=== PATIENT | female | born 1960 | race African-American/Black ===

== ENCOUNTER 2017-03-12 10:27 | Inpatient (IN) | payer OTHER ==
[~2017-03-12] VITALS: Ht 160 cm; Wt 71.7 kg
[2017-03-12] MEDS ORDERED: AZEL23SP NS (10:35)
[2017-03-12] MEDS ORDERED: OMEP20TA68 PO (10:35)
--- NOTE | 2017-03-12 10:40 | NUR ---
Pt ambulated to restroom but stated she is unable to provide a urine specimen at this time.
[2017-03-12] MEDS ORDERED: PANTOPRAZOLE SODIUM IV 40 MG in IV DEXTROSE 5% 100 ML IV ONE (11:15)
[2017-03-12] MEDS ORDERED: IV NS 1000 ML 1,000 ML IV ONE ×2 (11:15→14:16)
[2017-03-12] MEDS ORDERED: MORPHINE SULFATE 2 MG/1 ML DISP.SYRIN IV ONE (11:15)
[2017-03-12] MEDS ORDERED: ONDANSETRON IV *ER 4 MG/2 ML VIAL IV ONE (11:15)
[2017-03-12] MEDS ORDERED: MORPHINE SULFATE 2 MG/1 ML DISP.SYRIN ONE (11:24)
[2017-03-12] MEDS ORDERED: PANTOPRAZOLE SODIUM 40 MG VIAL ONE (11:25)
[2017-03-12] MEDS ORDERED: ONDANSETRON 4 MG/2 ML VIAL ONE (11:25)
[2017-03-12 11:41] LABS: BASOPHILS % (AUTO) 0.3 % (0.0-2.0); HEMATOCRIT 40.8 % (31.2-41.9); HEMOGLOBIN 13.2 g/dL (10.9-14.3); LYMPHOCYTES # (AUTO) 0.7 K/uL (20.0-40.0); MEAN CORPUSCULAR HGB CONC 32 g/dL (32.3-35.6); MEAN CORPUSCULAR VOLUME 74.2 fL (75.5-95.3); MONOCYTES # (AUTO) 0.2 K/uL (2.0-10.0); MONOCYTES % (AUTO) 1.6 % (0.0-11.0); NEUTROPHILS # (AUTO) 10.1 K/uL (1.8-8.9); NEUTROPHILS % (AUTO) 92.1 % (38.5-71.5); PLATELET COUNT (AUTO) 205 K/uL (179-408); RED BLOOD CELL COUNT(AUTO) 5.51 MIL/uL (3.63-4.92)
[2017-03-12] MEDS ORDERED: MORPHINE SULFATE 4 MG/1 ML DISP.SYRIN IV ONE (11:45)
[2017-03-12 11:49] LABS: CALCIUM 9.2 mg/dL (8.5-10.1); CREATININE 0.8 mg/dL (0.6-1.3); POTASSIUM 3.5 mmol/L (3.5-5.1)
[2017-03-12] MEDS ORDERED: MORPHINE SULFATE 4 MG/1 ML DISP.SYRIN ONE (11:49)
[2017-03-12 11:55] LABS: ALBUMIN 4.1 g/dL (3.4-5.0); BILIRUBIN,TOTAL 0.7 mg/dL (0.2-1.0); TOTAL PROTEIN, SERUM 8.8 g/dL (6.4-8.2)
[2017-03-12] MEDS ORDERED: IV NORMAL SALINE 250 ML IV ONE (12:50)
[2017-03-12] MEDS ORDERED: IOHEXOL 300MG/ML 100 ML INFUS..BTL ONE (12:50)
--- NOTE | 2017-03-12 13:30 | NUR ---
Pt resting in [facility], states pain is improved, NAD noted at this time.
[2017-03-12 13:57] LABS: BAND % (MANUAL) 3 % (0-10); LYMPHOCYTES % (MANUAL) 14 % (20-40); MONOCYTES % (MANUAL) 5 % (2-10); NEUTROPHILS % (MANUAL) 78 % (42-75); PLATELET ESTIMATE ADEQUATE
[2017-03-12 13:58] LABS: HYPOCHROMASIA 1+
--- NOTE | 2017-03-12 14:00 | NUR ---
Dr Crowley at bedside for re-eval.
[2017-03-12 14:14] LABS: *BILIRUBIN,URIN NEGATIVE (NEGATIVE); *BLOOD, URINE Trace-intact (NEGATIVE); *CLARITY,URINE CLEAR (CLEAR); *COLOR,URINE YELLOW (YELLOW); *KETONES,URINE 3+ (NEGATIVE); *PROTEIN,URINE 1+ (NEGATIVE); *UROBILINOGEN,URINE 0.2 E.U./dl (NORMAL); LEUKOCYTE ESTERASE ,URINE NEGATIVE (NEGATIVE); NITRITE, URINE NEGATIVE (NEGATIVE); PH,URINE 7.5 (5.0-8.0); UGLUCOSE NEGATIVE (NEGATIVE)
[2017-03-12] MEDS ORDERED: AMPICILLIN IV 3 G in IV NORMAL SALINE 100 ML IV ONE (14:15)
--- NOTE | 2017-03-12 14:16 | NUR ---
Pt states she is pain free at this time, Dr Crowley spoke with Dr Roy (surg) via telephone.
[2017-03-12 14:21] LABS: BACTERIA,URINE FEW /HPF (NONE SEEN); RBC,URINE 0-3 /HPF (0-3); SQUAMOUS EPITHELIAL CELL,UR FEW /HPF (NONE SEEN)
[2017-03-12] MEDS ORDERED: PIPERACILLIN/TAZOBACTAM/D5W 50 ML IV ONE (14:33)
[2017-03-12] MEDS ORDERED: IV D5 1/2 NS 1000 ML 1,000 ML IV PRN (14:43)
[2017-03-12] MEDS ORDERED: TEMAZEPAM 7.5 MG CAPSULE PO PRN ×2 (14:45→15:15)
[2017-03-12] MEDS ORDERED: ACETAMINOPHEN 325 MG TABLET PO PRN ×2 (14:45→15:15)
[2017-03-12] MEDS ORDERED: HYDROCODONE/APAP 5-325MG TABLET PO PRN ×2 (14:45→15:15)
[2017-03-12] MEDS ORDERED: MAGNESIUM HYDROXIDE 30 ML LIQUID UDC PO PRN ×2 (14:45→15:15)
[2017-03-12] MEDS ORDERED: ONDANSETRON 4 MG/2 ML VIAL IV PRN (14:45)
[2017-03-12] MEDS ORDERED: Z GUARD REMEDY PASTE 57 GM TUBE TOP PRN ×2 (14:45→15:15)
[2017-03-12] MEDS ORDERED: MORPHINE SULFATE 2 MG/1 ML DISP.SYRIN IV PRN (14:45)
--- NOTE | 2017-03-12 15:06 | NUR ---
Pt trans to m/s , NAD noted at this time.
[2017-03-12 15:53] VITALS: BP 106/64
[2017-03-12 16:00] VITALS: BP 145/86
[2017-03-12] MEDS ORDERED: PIPERACILLIN/TAZOBACTAM/D5W 50 ML IV SCH (18:00)
[2017-03-12] MEDS: PIPERACILLIN/TAZOBACTAM/D5W 50 ML IV SCH ×2 (18:17→23:48)
[2017-03-12] MEDS: MORPHINE SULFATE 2 MG/1 ML DISP.SYRIN IV PRN (18:45)
--- NOTE | 2017-03-12 19:10 | NUR ---
Received report from ODELL Coyle
--- NOTE | 2017-03-12 19:35 | NUR ---
PT IS LAYING IN BED COMFORTABLY. NO S/S OF RESPIRATORY DISTRESS NOTED. NO PAIN NOTED. ALL SAFETY NEEDS ARE MET.
--- NOTE | 2017-03-12 19:48 | NUR ---
Awake, lying on bed with couple of friends at bedside. Denies any pain/discomforts at this time. IVF infusing well at this time on LAC. Continue care as planned.
[2017-03-12] MEDS: IV D5 1/2 NS 1000 ML 1,000 ML IV PRN (19:57)
[2017-03-12 20:00] VITALS: BP 108/69
--- NOTE | 2017-03-12 21:53 | NUR ---
Seen and examined by Dr. Stein with order to keep patient NPO after midnight.
[2017-03-13] MEDS: IV D5 1/2 NS 1000 ML 1,000 ML IV PRN (02:57)
[2017-03-13] MEDS: MORPHINE SULFATE 2 MG/1 ML DISP.SYRIN IV PRN ×3 (03:02→19:46)
--- NOTE | 2017-03-13 03:05 | NUR ---
Presented complaint of left flank pain, medicated as ordered and needed. Will monitor.
[2017-03-13 04:32] VITALS: BP 108/70
[2017-03-13] MEDS: PIPERACILLIN/TAZOBACTAM/D5W 50 ML IV SCH ×4 (05:18→23:25)
--- NOTE | 2017-03-13 05:21 | NUR ---
Medicated for complaint of headache. Continue to monitor.
[2017-03-13 06:32] LABS: BILIRUBIN,TOTAL 0.6 mg/dL (0.2-1.0); CALCIUM 8.4 mg/dL (8.5-10.1); CREATININE 0.9 mg/dL (0.6-1.3); POTASSIUM 3.7 mmol/L (3.5-5.1); TOTAL PROTEIN, SERUM 7.1 g/dL (6.4-8.2)
--- NOTE | 2017-03-13 06:36 | NUR ---
Slept good. Medicated once for pain and once for headache with good relief. No further complaint presented. All needs attended and met. Kept NPO as ordered. No significant event reported all night. Continue care as planned.
--- NOTE | 2017-03-13 06:53 | NUR ---
Report given to AM nurse.
[2017-03-13 06:57] LABS: BASOPHILS % (AUTO) 0.3 % (0.0-2.0); EOSINOPHILS # (AUTO) 0.1 K/uL (0.0-0.7); EOSINOPHILS % (AUTO) 1.5 % (0.0-7.0); HEMOGLOBIN 11.3 g/dL (10.9-14.3); LYMPHOCYTES # (AUTO) 1.9 K/uL (20.0-40.0); LYMPHOCYTES % (AUTO) 22.7 % (20.5-51.5); MEAN CORPUSCULAR HEMOGLOBIN 24.6 uug (24.7-32.8); MEAN CORPUSCULAR HGB CONC 32 g/dL (32.3-35.6); MEAN CORPUSCULAR VOLUME 76.2 fL (75.5-95.3); MONOCYTES # (AUTO) 0.7 K/uL (2.0-10.0); MONOCYTES % (AUTO) 8.3 % (0.0-11.0); NEUTROPHILS # (AUTO) 5.6 K/uL (1.8-8.9); NEUTROPHILS % (AUTO) 67.2 % (38.5-71.5); PLATELET COUNT (AUTO) 168 K/uL (179-408); RED CELL DISTRIBUTION WIDTH 13.2 % (12.3-17.7); WHITE BLOOD COUNT (AUTO) 8.3 K/uL (3.8-11.8)
[2017-03-13 07:09] LABS: HEMATOCRIT 35.1 % (31.2-41.9)
--- NOTE | 2017-03-13 07:20 | NUR ---
Pt received awake,alert,oriented.Denies pain,discomfort.ambulating in the room.No SOB noted.
[2017-03-13 08:00] VITALS: BP 94/62
[2017-03-13] MEDS ORDERED: PANTOPRAZOLE SODIUM 40 MG VIAL IV SCH (09:00)
--- NOTE | 2017-03-13 10:00 | NUR ---
Seen,examined by . placed midline to Right upper arm.Pt tolerated well.
[2017-03-13] MEDS: PANTOPRAZOLE SODIUM 40 MG VIAL IV SCH (10:35)
[2017-03-13] MEDS ORDERED: LIDOCAINE HCL 1% 20 ML VIAL MC ONE (11:43)
[2017-03-13] MEDS ORDERED: GLYCOPYRROLATE 0.2 MG/ML VIAL MC ONE (11:44)
[2017-03-13] MEDS ORDERED: DEXAMETHASONE SOD PHOSPHATE 4 MG INJ IV ONE (11:44)
[2017-03-13] MEDS ORDERED: NEOSTIGMINE METHYLSULFATE 10 MG/10 ML VIAL IV ONE (11:44)
[2017-03-13] MEDS ORDERED: KETOROLAC TROMETHAMINE 30 MG INJ IM ONE (11:45)
[2017-03-13] MEDS ORDERED: ESMOLOL HCL 100 MG/10 ML VIAL IV ONE (11:45)
[2017-03-13 12:00] VITALS: BP 100/64
--- NOTE | 2017-03-13 13:00 | NUR ---
Pt transfered to surgery.
[2017-03-13] MEDS ORDERED: FENTANYL CITRATE 100 MCG/2 ML AMPUL ONE ×2 (13:25→16:12)
[2017-03-13] MEDS ORDERED: MIDAZOLAM HCL 2 MG/2 ML VIAL ONE (13:25)
[2017-03-13] MEDS ORDERED: ROCURONIUM BROMIDE 50 MG/5 ML VIAL ONE (13:26)
[2017-03-13] MEDS ORDERED: SUCCINYLCHOLINE CHLORIDE 200 MG/10 ML VIAL ONE (13:26)
[2017-03-13] MEDS ORDERED: PROPOFOL 200 MG/20 ML BOTTLE IV ONE (13:29)
[2017-03-13] MEDS ORDERED: ONDANSETRON 4 MG/2 ML VIAL IV ONE (13:29)
[2017-03-13] MEDS ORDERED: DESFLURANE ANESTHESIA GAS 240 ML BOTTLE ONE (13:35)
[2017-03-13] MEDS ORDERED: BUPIVACAINE/EPI PF 0.25% 30 ML VIAL ONE (13:41)
[2017-03-13] MEDS ORDERED: BACITRACIN 50,000 UNITS VIAL ONE (13:41)
[2017-03-13] MEDS ORDERED: LIDOCAINE HCL 1% 20 ML VIAL ONE (13:41)
[2017-03-13] MEDS ORDERED: BACITRACIN ZINC OINT 15 GM TUBE ONE (14:46)
[2017-03-13] MEDS ORDERED: ALBUTEROL SULFATE 2.5 MG/3 ML NEBU ONE (15:00)
[2017-03-13] MEDS ORDERED: ONDANSETRON 4 MG/2 ML VIAL ONE (16:00)
--- NOTE | 2017-03-13 16:30 | NUR ---
Pt received from recovery via bed s/p laparoscopic appendectomy.Pt remains awake,alert.On 2l oxygen via NC.Denies nausea.Will continue to monitor.
[2017-03-13 16:32] VITALS: BP 164/84
--- NOTE | 2017-03-13 17:16 | NUR ---
Pt is more awake,alert.No SOB noted.Abdomen non distended.Small dressing intact to incisional area.No bleeding noted.
[2017-03-13] MEDS: ONDANSETRON 4 MG/2 ML VIAL IV PRN (17:42)
--- NOTE | 2017-03-13 17:42 | NUR ---
Medicated with Zofran 4mg for nausea ,will monitor.
[2017-03-13 20:00] VITALS: BP 162/87
[2017-03-14] VITALS: BP 113/66
[2017-03-14] MEDS: ONDANSETRON 4 MG/2 ML VIAL IV PRN (00:46)
[2017-03-14] MEDS: MORPHINE SULFATE 2 MG/1 ML DISP.SYRIN IV PRN ×2 (00:46→08:29)
[2017-03-14] MEDS: IV LACTATED RINGERS SOLUTION 1,000 ML IV PRN ×2 (03:41→18:39)
[2017-03-14 04:57] VITALS: BP 114/75
[2017-03-14] MEDS: PIPERACILLIN/TAZOBACTAM/D5W 50 ML IV SCH ×4 (05:00→23:00)
--- NOTE | 2017-03-14 06:06 | NUR ---
Patient slept intermittently, assisted w/toileting needs, IVF infusing, Zosyn given as ordered, no s/s of adverse reaction noted. Pain and nausea management as ordered. Call light within reach. Will continue to monitor.
[2017-03-14 07:12] LABS: BASOPHILS % (AUTO) 0.2 % (0.0-2.0); CREATININE 0.9 mg/dL (0.6-1.3); EOSINOPHILS # (AUTO) 0.1 K/uL (0.0-0.7); EOSINOPHILS % (AUTO) 1.2 % (0.0-7.0); HEMATOCRIT 34.6 % (31.2-41.9); HEMOGLOBIN 11.3 g/dL (10.9-14.3); LYMPHOCYTES % (AUTO) 20.9 % (20.5-51.5); MEAN CORPUSCULAR HEMOGLOBIN 24.4 uug (24.7-32.8); MEAN CORPUSCULAR HGB CONC 33 g/dL (32.3-35.6); MEAN CORPUSCULAR VOLUME 74.9 fL (75.5-95.3); MONOCYTES # (AUTO) 0.6 K/uL (2.0-10.0); MONOCYTES % (AUTO) 5.9 % (0.0-11.0); NEUTROPHILS # (AUTO) 6.9 K/uL (1.8-8.9); NEUTROPHILS % (AUTO) 71.8 % (38.5-71.5); PLATELET COUNT (AUTO) 170 K/uL (179-408); POTASSIUM 3.4 mmol/L (3.5-5.1); RED BLOOD CELL COUNT(AUTO) 4.62 MIL/uL (3.63-4.92); RED CELL DISTRIBUTION WIDTH 13.2 % (12.3-17.7); WHITE BLOOD COUNT (AUTO) 9.6 K/uL (3.8-11.8)
[2017-03-14 07:57] LABS: CALCIUM 8.5 mg/dL (8.5-10.1); CREATININE 0.9 mg/dL (0.6-1.3); POTASSIUM 3.4 mmol/L (3.5-5.1)
[2017-03-14] MEDS: PANTOPRAZOLE SODIUM 40 MG VIAL IV SCH (08:28)
[2017-03-14 08:36] LABS: BAND % (MANUAL) 2 % (0-10); LYMPHOCYTES % (MANUAL) 27 % (20-40); MONOCYTES % (MANUAL) 5 % (2-10); NEUTROPHILS % (MANUAL) 66 % (42-75)
[2017-03-14 08:39] LABS: HYPOCHROMASIA 1+; PLATELET ESTIMATE ADEQUATE; TARGET CELLS FEW
[2017-03-14 12:00] VITALS: BP 105/65
[2017-03-14] MEDS ORDERED: POTASSIUM CHLORIDE 20 MEQ TAB.PRT.SR PO ONE (14:15)
[2017-03-14 16:14] VITALS: BP 93/66
--- NOTE | 2017-03-14 18:34 | NUR ---
PT AWAKE IN BED, NO SIGNS OF DISTRESS, ALL DUE MEDS GIVEN. PT AMBULATED IN HALLWAY A COUPLE TIMES TROUGHOUT SHIFT ALL SAFETY AND COMFORT MEASURES MAINTAINED THROUGHOUT SHIFT, CALL LIGHT IN REACH
[2017-03-14 19:00] VITALS: BP 107/74
[2017-03-15] MEDS: ONDANSETRON 4 MG/2 ML VIAL IV PRN (00:13)
[2017-03-15] MEDS: MORPHINE SULFATE 2 MG/1 ML DISP.SYRIN IV PRN (00:13)
[2017-03-15 04:37] VITALS: BP 110/72
--- NOTE | 2017-03-15 05:36 | NUR ---
Patient slept well, in no acute distress. Assisted with toileting needs. Meds due given as ordered. Will continue to monitor.
[2017-03-15] MEDS: PIPERACILLIN/TAZOBACTAM/D5W 50 ML IV SCH ×2 (05:57→12:00)
[2017-03-15] MEDS: IV LACTATED RINGERS SOLUTION 1,000 ML IV PRN (06:02)
[2017-03-15 07:41] LABS: BASOPHILS # (AUTO) 0.1 K/uL (0.0-8.0); EOSINOPHILS # (AUTO) 0.2 K/uL (0.0-0.7); EOSINOPHILS % (AUTO) 4.4 % (0.0-7.0); HEMATOCRIT 32.4 % (31.2-41.9); HEMOGLOBIN 10.4 g/dL (10.9-14.3); LYMPHOCYTES # (AUTO) 2.5 K/uL (20.0-40.0); LYMPHOCYTES % (AUTO) 46.1 % (20.5-51.5); MEAN CORPUSCULAR HEMOGLOBIN 24.4 uug (24.7-32.8); MEAN CORPUSCULAR HGB CONC 32 g/dL (32.3-35.6); MEAN CORPUSCULAR VOLUME 76.3 fL (75.5-95.3); MONOCYTES # (AUTO) 0.5 K/uL (2.0-10.0); MONOCYTES % (AUTO) 8.1 % (0.0-11.0); NEUTROPHILS # (AUTO) 2.3 K/uL (1.8-8.9); NEUTROPHILS % (AUTO) 40.4 % (38.5-71.5); PLATELET COUNT (AUTO) 160 K/uL (179-408); RED BLOOD CELL COUNT(AUTO) 4.25 MIL/uL (3.63-4.92); RED CELL DISTRIBUTION WIDTH 13.1 % (12.3-17.7)
[2017-03-15 07:45] LABS: CALCIUM 8.2 mg/dL (8.5-10.1); CREATININE 0.9 mg/dL (0.6-1.3); POTASSIUM 3.4 mmol/L (3.5-5.1)
[2017-03-15 07:50] LABS: WHITE BLOOD COUNT (AUTO) 5.6 K/uL (3.8-11.8)
--- NOTE | 2017-03-15 08:00 | NUR ---
AWAKE ALERT COOPERATE WELL NO N/V OR PAIN INCISION DRY CLEAN ENC TO UP AMBULATE AND DEEP BREATH /COUGH SHAL[place] WELL CONTINUE IVF ,EAT BREAKFAST MOD AMT RESTING WITH CALL LIGHT IN REACH
[2017-03-15] MEDS: PANTOPRAZOLE SODIUM 40 MG VIAL IV SCH (08:25)
[2017-03-15] MEDS ORDERED: POTASSIUM CHLORIDE 20 MEQ POWDER PACKET PO ONE (10:00)
--- NOTE | 2017-03-15 11:00 | NUR ---
DR PAREDSE,Rosibel SEE PATIENT AND LAB RESULT ORDER OK TO D/C HOME TODAY NEED TO F/U WITH RHONA DAS SURGEON CALL FOR APPIONTMENT AND CONTINUE HOME MED ORDER D/C INSTRUCTION GIVE PHAMACY INSTRUCTION ON DR DAMON PRIOR D/C HOME TODAY VERBALIZES UNDERSTAND AND SIGNS D/C SHEET HL AND MIDLINE DISCONTINUE PRIOR D/C HOME
[2017-03-15 11:47] VITALS: BP 122/79
--- NOTE | 2017-03-15 13:30 | NUR ---
D/C HOME WITH HER BELONGING CONDITION STABLE NO PAIN OR N/V
== END 2017-03-15 13:30 | disposition home or self-care (01) | DRG 225 ==
LOC: ER 10:27 → MED 15:18
PROVIDERS: ADMIT Family Medicine; ATTEND Family Medicine
DX: K35.80 Unspecified acute appendicitis (principal); F17.210 Nicotine dependence, cigarettes, uncomplicated; J45.909 Unspecified asthma, uncomplicated; K21.9 Gastro-esophageal reflux disease without esophagitis; N73.6 Female pelvic peritoneal adhesions (postinfective); Z90.710 Acquired absence of both cervix and uterus; Z83.3 Family history of diabetes mellitus
CPT/HCPCS: 36415; 70030-TC; 83690; 84520; 85025; 85610; 93005; A4663; C9113; J0330; J1100; J1885; J2250; J2270; J2405; J2543; J2710; J3010; J3490; J7030; J7050; J7120; Q9967

== ENCOUNTER 2017-12-21 17:24 | Emergency (ER) | payer OTHER ==
[~2017-12-21] VITALS: Ht 160 cm; Wt 72.6 kg
[~2017-12-21 17:24] MED LIST: AZEL23SP NS; OMEP20TA5 PO
[2017-12-21] MEDS: ACETAMINOPHEN ES 500 MG TABLET PO ONE (19:29)
[2017-12-21] MEDS: IBUPROFEN 600 MG TABLET PO ONE (19:29)
--- NOTE | 2017-12-21 19:33 | NUR ---
Patient discharged to home in stable conditon. Written and verbal after care instructions given. Patient verbalizes understanding of instructions.
[2017-12-21] MEDS ORDERED: ACETAMINOPHEN ES 500 MG TABLET ONE (19:42)
[2017-12-21] MEDS ORDERED: IBUPROFEN 600 MG TABLET ONE (19:42)
== END 2017-12-21 19:34 | disposition home or self-care (01) ==
LOC: ER 17:28
DX: B34.9 Viral infection, unspecified (principal); J20.9 Acute bronchitis, unspecified; K21.9 Gastro-esophageal reflux disease without esophagitis; Z90.710 Acquired absence of both cervix and uterus; R51 Headache
CPT/HCPCS: 71045; A4663; A9150

== ENCOUNTER 2017-12-22 11:19 | Emergency (ER) | payer OTHER ==
[~2017-12-22] VITALS: Ht 160 cm; Wt 72.6 kg
--- NOTE | 2017-12-22 12:08 | NUR ---
Patient discharged to home in stable conditon. Written and verbal after care instructions given. Patient verbalizes understanding of instructions. Stressed follow up with pmd.
== END 2017-12-22 12:09 | disposition home or self-care (01) ==
LOC: ER 11:19
DX: J20.9 Acute bronchitis, unspecified (principal); K21.9 Gastro-esophageal reflux disease without esophagitis; Z90.710 Acquired absence of both cervix and uterus; Z88.1 Allergy status to other antibiotic agents; Z90.49 Acquired absence of other specified parts of digestive tract
CPT/HCPCS: A4663